=== PATIENT | female | born 1950 | race Caucasian/White ===

== ENCOUNTER 2017-06-19 23:22 | Emergency (ER) | payer OTHER ==
[~2017-06-19] VITALS: Ht 157.5 cm; Wt 104.3 kg
[~2017-06-19 23:22] MED LIST: ABILIFY10 MG; ACCOLATE 20 MG; ARNUITY ELLIP100 MCG IH; CLONAZEPAM0.5 MG; CLONAZEPAM1 MG; CLONAZEPAM1 MG PO; COZAAR100 MG; DIOVAN160 M1 PO; DIPHENHYDRAMINE PO; FLOVENT DISKU100 MCG IH; HYZAAR 100-121 UDTAB; KETOROLAC TROME10 MG; LYRICA PO; METOPROLOL SUCC25 MG; NEURONTIN800 MG; NEURONTIN800 MG PO; ORPHENADRINE C100 GM; PENTOXIFYLLINE; PENTOXIFYLLINE400 MG; PREGABALIN 100 MG; PREVACID30 MG; PRILOSEC20 MG PO; PROVENTIL3 ML/2.5 M; PROZAC20 MG; RESTORIL15 MG PO; SINGULAIR4 MG; TEMAZEPAM7.5 MG; TORADOL60 MG IM; TRAMADOL HCL-AP1 TAB; VENTOLIN HFA18 GM IH; XANAX0.25 MG PO; ZAFIRLUKAST PO; ZANTAC300 MG; ZANTAC300 MG PO; ZOCOR5 MG; ZYLOPRIM300 MG
[2017-06-20] MEDS ORDERED: AMINOPHYLLINE PO (00:04)
[2017-06-20] MEDS ORDERED: XOPENEX0.63 MG/3 IH (00:04)
[2017-06-20] MEDS ORDERED: VENTOLIN HFA18 GM IH (00:04)
[2017-06-20] MEDS ORDERED: ALBUTEROL0.63 MG/3 IH (00:05)
[2017-06-20] MEDS ORDERED: CEFUROXIME250 MG PO (06:37)
[2017-06-20] MEDS ORDERED: ZANTAC300 MG PO (06:37)
== END 2017-06-20 07:43 ==
LOC: ER 23:22
DX: R10.32 Left lower quadrant pain (principal)

== ENCOUNTER 2018-08-15 23:41 | Emergency (ER) | payer OTHER ==
[~2018-08-15] VITALS: Ht 157.5 cm; Wt 108.9 kg
[~2018-08-15 23:41] MED LIST changes: +ALBUTEROL0.63 MG/3 IH; +AMINOPHYLLINE PO; +CEFUROXIME250 MG PO; +XOPENEX0.63 MG/3 IH
[2018-08-15] MEDS ORDERED: ASPIRIN81 M1 (23:50)
[2018-08-15] MEDS ORDERED: SYMBICORT 16010.2 GM (23:50)
[2018-08-15] MEDS ORDERED: PRILOSEC10 MG (23:50)
== END 2018-08-16 13:46 | disposition home or self-care (01) ==
LOC: ER 23:41
DX: J45.901 Unspecified asthma with (acute) exacerbation (principal); J11.1 Influenza due to unidentified influenza virus with other respiratory manifestations

== ENCOUNTER 2019-07-09 09:23 | Emergency (ER) | payer OTHER ==
[~2019-07-09] VITALS: Ht 157.5 cm; Wt 101.6 kg
[~2019-07-09 09:23] MED LIST changes: +ASPIRIN81 M1; +PRILOSEC10 MG; +SYMBICORT 16010.2 GM
[2019-07-09] MEDS ORDERED: ZESTRIL5 MG (09:58)
[2019-07-09] MEDS ORDERED: PENTOXIFYLLINE400 MG (09:59)
[2019-07-09] MEDS ORDERED: CRESTOR20 MG (09:59)
== END 2019-07-09 16:11 | disposition home or self-care (01) ==
LOC: ER 09:23
DX: R07.89 Other chest pain (principal); M54.2 Cervicalgia

== ENCOUNTER 2019-08-18 14:54 | Emergency (ER) | payer OTHER ==
[~2019-08-18] VITALS: Ht 149.9 cm; Wt 79.4 kg
[~2019-08-18 14:54] MED LIST changes: +CRESTOR20 MG; +ZESTRIL5 MG
== END 2019-08-18 19:24 | disposition home or self-care (01) ==
LOC: ER 14:54
DX: J45.901 Unspecified asthma with (acute) exacerbation (principal)

== ENCOUNTER 2020-09-04 11:19 | Emergency (ER) | payer OTHER ==
[~2020-09-04] VITALS: Ht 157.5 cm; Wt 108.9 kg
[2020-09-04] MEDS ORDERED: ATACAND16 MG (11:52)
[2020-09-04] MEDS ORDERED: LEXAPRO5 MG (11:53)
[2020-09-04] MEDS ORDERED: HYDROCHLOROTH12.5 MG (11:54)
[2020-09-04] MEDS ORDERED: VENTOLIN HFA18 GM (11:54)
[2020-09-04] MEDS ORDERED: ZAFIRLUKAST20 MG (11:55)
[2020-09-04] MEDS ORDERED: ACTINEL LIQUID474 ML (11:55)
[2020-09-04] MEDS ORDERED: DICLOFENAC-MIS1 EAC3 (11:56)
[2020-09-04] MEDS ORDERED: ULTRAM50 MG (11:56)
== END 2020-09-04 19:49 | disposition home or self-care (01) ==
LOC: ER 11:19
DX: K62.5 Hemorrhage of anus and rectum (principal); J45.998 Other asthma; M54.89 Other dorsalgia; M62.830 Muscle spasm of back; K57.30 Diverticulosis of large intestine without perforation or abscess without bleeding

== ENCOUNTER 2020-11-26 09:11 | Outpatient (CLI) | payer OTHER ==
[~2020-11-26 09:11] MED LIST changes: +ACTINEL LIQUID474 ML; +ATACAND16 MG; +DICLOFENAC-MIS1 EAC3; +HYDROCHLOROTH12.5 MG; +LEXAPRO5 MG; +ULTRAM50 MG; +VENTOLIN HFA18 GM; +ZAFIRLUKAST20 MG
== END 2020-11-26 09:18 | disposition home or self-care (01) ==
LOC: TOM 09:11
PROVIDERS: ATTEND Internal Medicine Gastroenterology
DX: K57.32 Diverticulitis of large intestine without perforation or abscess without bleeding (principal); J44.1 Chronic obstructive pulmonary disease with (acute) exacerbation

== ENCOUNTER 2020-12-31 15:59 | Inpatient (IN) | payer OTHER ==
[~2020-12-31] VITALS: Ht 157.5 cm; Wt 106.1 kg
--- NOTE | 2020-12-31 16:13 | NUR ---
PTE LLEGA A UNIDAD DE TRIAGE EN [place], SE OBSERVA PTE TENIENDO [facility] CONVUSION, Y VOMITA 3 VECES SECRECIONES AMARILLA. FAMILIAR REFIERE QUE PTE ESTABA ESTABLE HASTA QUE [facility]TES [facility] LE CELE EL EPISODIO DE LA CONVULSION. SE PRESENTA A Y SE UBICA EN AREADE CRITICO.
--- NOTE | 2020-12-31 16:20 | NUR ---
SE RECIBE PACIENTE DEL AREA DEL TRIAGE, ALERTA CONSCIENTE Y ORIENTADA X3, SUDOROSA Y DEBIL. SE COLOCA EN CAMA SE CONECTA A MONITOR CARDIACO Y OXIMETRIA DE PUL[place]. SE OBSERVA FIBRILACION ATRIAL, SE REALIZA EKG EVALUADO POR EL DR. CH EL CUAL EVALUA AL PACIENTE Y COLOCA ORDENES MEDICAS. SE CANALIZA BAJO MEDIDAS ASEPTICAS SE REALIZAN 2 CANALIZACIONES Y SE ADMINISTRAN MEDICAMENTOS THONY ORDEN MEDICA BAJO MEDIDAS ASEPTICAS Y SE REALIZA 2DO EKG LUEGO DE JANNIE DE CARDIZEM 20MG EKG EVALUADO POR EL DR. CH. SE EXTRAEN MUESTRAS DE CHEPE BAJO MEDIDAS ASEPTICAS, SE ROTULAN Y ENVIAN AL LABORATORIO. ABGS REALIZADOS POR NICKY WILSON DE CUIDADO RESPIRATORIO.
== END 2021-01-02 15:59 | disposition home or self-care (01) | DRG 309 ==
LOC: ER 15:59 → MEDI 21:06
PROVIDERS: ADMIT Internal Medicine; ATTEND Internal Medicine
PROC: B24BYZZ Ultrasonography of Heart with Aorta using Other Contrast (ICD-10-PCS; 2020-12-31)
PROC: B020ZZZ Computerized Tomography (CT Scan) of Brain (ICD-10-PCS; 2020-12-31)
PROC: 4A12X4Z Monitoring of Cardiac Electrical Activity, External Approach (ICD-10-PCS; principal; 2021-01-01)
DX: I48.91 Unspecified atrial fibrillation (principal); N17.8 Other acute kidney failure; E66.8 Other obesity; I10 Essential (primary) hypertension; R06.02 Shortness of breath; G40.909 Epilepsy, unspecified, not intractable, without status epilepticus; E78.5 Hyperlipidemia, unspecified; Z20.822 Contact with and (suspected) exposure to COVID-19

== ENCOUNTER 2021-10-02 11:38 | Emergency (ER) | payer OTHER ==
[~2021-10-02] VITALS: Ht 157.5 cm; Wt 114.8 kg
== END 2021-10-02 14:51 | disposition home or self-care (01) ==
LOC: ER 11:38
DX: R07.9 Chest pain, unspecified (principal); F41.9 Anxiety disorder, unspecified; Z88.8 Allergy status to other drugs, medicaments and biological substances

== ENCOUNTER 2021-10-07 08:46 | Outpatient (CLI) | payer OTHER | END 2021-10-07 08:50 | disposition home or self-care (01) | LOC: SONOGRAMA 08:46 | PROVIDERS: ATTEND Pathology Anatomic Pathology & Clinical Pathology | DX: E04.2 Nontoxic multinodular goiter (principal) ==

== ENCOUNTER 2021-12-30 13:26 | Emergency (ER) | payer OTHER ==
[~2021-12-30] VITALS: Ht 157.5 cm; Wt 106.1 kg
[2021-12-30] MEDS ORDERED: CANDESARTAN CIL16 MG PO (13:58)
[2021-12-30] MEDS ORDERED: CLONAZEPAM0.5 MG PO (13:59)
[2021-12-30] MEDS ORDERED: COLCHICINE0.6 MG PO (13:59)
[2021-12-30] MEDS ORDERED: ELIQUIS5 MG PO (13:59)
[2021-12-30] MEDS ORDERED: ROSUVASTATIN CA20 MG PO (14:00)
[2021-12-30] MEDS ORDERED: OMEPRAZOLE MAGN20 M1 PO (14:00)
[2021-12-30] MEDS ORDERED: DILTIAZEM ER120 M2 PO (14:00)
[2021-12-30] MEDS ORDERED: ROPINIROLE HCL2 MG PO (14:00)
[2021-12-30] MEDS ORDERED: ESCITALOPRAM OX10 MG PO (14:00)
== END 2021-12-30 16:44 | disposition home or self-care (01) ==
LOC: ER 13:26
DX: R60.0 Localized edema (principal); R51.9 Headache, unspecified; Z88.1 Allergy status to other antibiotic agents

== ENCOUNTER 2024-06-15 10:31 | Emergency (ER) | payer OTHER ==
[~2024-06-15] VITALS: Ht 157.5 cm; Wt 117.9 kg
[~2024-06-15 10:31] MED LIST changes: +AMOX-CLAV 875-1 EAC1 PO; +CANDESARTAN CIL16 MG PO; +CLONAZEPAM0.5 MG PO; +COLCHICINE0.6 MG PO; +DILTIAZEM ER120 M2 PO; +ELIQUIS5 MG PO; +ESCITALOPRAM OX10 MG PO; +FLONASE16 GM NASAL; +MEDROLPACK PO; +MONTELUKAST SOD10 MG PO; +OMEPRAZOLE MAGN20 M1 PO; +ROPINIROLE HCL2 MG PO; +ROSUVASTATIN CA20 MG PO; +SPIRONOLACTONE25 MG PO
[2024-06-15] MEDS ORDERED: LEVALBUTEROL HCL 1.25 MG/3 ML SOLUTION IH STA (11:19)
[2024-06-15] MEDS ORDERED: BUDESONIDE 0.5 MG/2 ML AMPUL.NEB IH STA (11:21)
[2024-06-15] MEDS ORDERED: LEVALBUTEROL HCL 1.25 MG/3 ML SOLUTION IH ONE (11:47)
[2024-06-15] MEDS ORDERED: BUDESONIDE 0.5 MG/2 ML AMPUL.NEB IH ONE (11:48)
[2024-06-15 11:49] LABS: HEMATOCRIT 38.6 % (36.0-45.00); HEMOGLOBIN 13.1 g/dL (12.0-15.00); MEAN CELL VOLUME 86.2 fL (80.00-100.00); MEAN CORPUSCULAR HEMOGLOBIN 29.2 pg (27.00-32.0); MEAN CORPUSCULAR HGB CONC 33.9 g/dl (32.0-36.0); PLATELET COUNT 256 K/uL (150-450); RED BLOOD COUNT 4.48 M/uL (4.00-6.00); RED CELL DISTRIBUTION WIDTH 15.3 % (11.5-14.5)
[2024-06-15 12:06] LABS: CALCIUM 9.3 mg/dL (8.5-10.1); CREATININE SERUM 1.27 mg/dL (0.55-1.02); GFR 41.36; POTASSIUM 3.3 mEq/L (3.5-5.1)
== END 2024-06-15 13:57 | disposition home or self-care (01) ==
LOC: ER 10:34
PROVIDERS: General Practice
DX: J45.909 Unspecified asthma, uncomplicated (principal); I10 Essential (primary) hypertension; I49.8 Other specified cardiac arrhythmias; Z88.8 Allergy status to other drugs, medicaments and biological substances; M19.90 Unspecified osteoarthritis, unspecified site; E78.00 Pure hypercholesterolemia, unspecified; E11.9 Type 2 diabetes mellitus without complications; Z20.822 Contact with and (suspected) exposure to COVID-19

== ENCOUNTER 2025-01-11 03:31 | Emergency (ER) | payer OTHER ==
[~2025-01-11] VITALS: Ht 157.5 cm; Wt 113.4 kg
[2025-01-11] MEDS ORDERED: RAYOS5 MG (04:11)
[2025-01-11 05:01] LABS: BASO % 0.8 % (0.1-1.2); EOS # 0.22 (0.04-0.54); EOS % 2.7 % (0.7-7.0); LYMPH # 2.17 (1.18-3.74); LYMPH % 26.2 % (19.3-53.1); MEAN PLATELET VOLUME 10.20 fl (9.4-12.4); MONO # 0.44 (0.24-0.82); MONO % 5.3 % (4.7-12.5); NEUT # 5.37 (1.56-6.13); NEUT % 64.8 % (34.0-71.1); RED CELL DISTRIBUTION WIDTH 14.6 % (11.6-14.4)
[2025-01-11 05:16] LABS: INR 1.13
[2025-01-11 05:32] LABS: ALT/SGPT 18.0 U/L (12-78); AST/SGOT 16.0 U/L (15-37); BILIRUBIN TOTAL 0.51 mg/dL (0.3-1.2); BUN CREA RATIO 16.0 (7.0-25.0); CREATININE SERUM 0.77 mg/dL (0.55-1.02); GFR 73.69; GLOBULINA 3.4 G/DL (2.4-3.5); GLUCOSE FASTING 107.0 mg/dL (65-100); OSMOLALITY SERUM 287.0 MOSM/KG (275-295)
[2025-01-11] MEDS ORDERED: ALBUTEROL SULFATE 3 ML/2.5 MG AMPUL.NEB IH SCH (08:00)
[2025-01-11 08:36] LABS: URINE APPEARANCE Clear; URINE BILIRRUBIN Negative (NEGATIVE); URINE BLOOD Negative; URINE COLOR Yellow; URINE GLUCOSE Negative (NEGATIVE); URINE KETONE Negative (NEGATIVE); URINE LEUKOCYTE Negative; URINE NITRATE Negative; URINE PROTEIN Negative (NEGATIVE); URINE UROBILINOGEN 0.2 E.U./dl
[2025-01-11 08:40] LABS: URINE BACTERIA 305.9 uL (0.0-1933); URINE EPITHELIAL CELLS 8.2 uL (0.0-38.8); URINE RBC 2.6 uL (0.0-20.8)
[2025-01-11 08:46] LABS: URINE CAST 0.14 uL (0.0-1.40); URINE WBC 1.6 uL (0.0-23.2)
[2025-01-11] MEDS ORDERED: FAMOtidine 10 MG/ML (4ML VIAL) IV ONE (12:00)
[2025-01-11] MEDS ORDERED: DEXAMETHASONE SODIUM PHOSP/PF 10 MG/ML VIAL IV ONE (12:00)
[2025-01-11] MEDS ORDERED: LORazepam 2 MG/ML VIAL IV ONE (13:15)
[2025-01-11] MEDS ORDERED: METHYLPREDNISOLONE SOD SUCC 125 MG VIAL IV ONE (14:30)
[2025-01-11] MEDS ORDERED: DIPHENHYDRAMINE HCL 50 MG/ML VIAL 1ML IV ONE (14:30)
[2025-01-11] MEDS ORDERED: LEVALBUTEROL HCL 1.25 MG/3 ML SOLUTION IH ONE (16:15)
[2025-01-11 18:30] VITALS: BP 95/68; O2SAT 99
== END 2025-01-11 18:33 | disposition designated cancer center or children's hospital (05) ==
LOC: ER 03:31
PROVIDERS: General Practice
DX: R42 Dizziness and giddiness (principal); D32.9 Benign neoplasm of meninges, unspecified; I10 Essential (primary) hypertension; Z88.8 Allergy status to other drugs, medicaments and biological substances; Z87.09 Personal history of other diseases of the respiratory system
CPT/HCPCS: 70552